=== PATIENT | female | born 1965 ===

== ENCOUNTER 2021-04-26 22:32 | Emergency (ER) | payer SELFPAY ==
[~2021-04-26] VITALS: Ht 154.9 cm; Wt 50.0 kg
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
[2021-04-26 23:09] LABS: ALBUMIN 2.5 g/dL (3.4-5.0); ANION GAP 10 mmol/L (5-15); BASOPHILS % (AUTO) 0 % (0-1); CALCIUM 7.8 mg/dL (8.5-10.1); CHLORIDE 104 mmol/L (98-107); CREATININE 0.78 mg/dL (0.55-1.02); EOSINOPHILS % (AUTO) 0 % (1-7); LYMPHOCYTES % (AUTO) 6 % (22-44); MEAN CORPUSCULAR HEMOGLOBIN 18.8 pg (27.0-34.8); MEAN CORPUSCULAR HGB CONC 31.5 g/dL (32.4-35.8); MONOCYTES % (AUTO) 2 % (2-9); NEUTROPHILS % (AUTO) 91 % (42-75); PLATELET COUNT 596 x10^3/uL (130-400); RED BLOOD COUNT 4.38 x10^6/uL (3.82-5.3)
--- NOTE | 2021-04-26 23:25 | NUR ---
PT OFF UNIT IN IMAGING.
--- NOTE | 2021-04-27 01:10 | NUR ---
BREAK RN: PT RESTING ON GURNEY, NAD, EYES CLOSED, EVEN AND UNLABORED RESPIRATIONS NOTED, UDS OBTAINED AND SENT TO LAB, [facility].
[2021-04-27 01:25] LABS: AMPHETAMINE SCREEN, URINE Positive (Negative); BARBITURATE SCREEN, URINE Negative (Negative); BENZODIAZEPINE SCREEN, URINE Negative (Negative); CANNABINOID SCREEN, URINE Negative (Negative); COCAINE SCREEN, URINE Positive (Negative); METHADONE SCREEN, URINE Negative (Negative); OPIATE SCREEN, URINE Negative (Negative)
[2021-04-27 01:38] VITALS: BP 108/64
--- NOTE | 2021-04-27 01:47 | NUR ---
PT AMBULATED TO BATHROOM WITH STEADY GAIT. AMBULATED BACK TO ROOM. PASSED ROAD TEST. PT MEDICALLY CLEARED. PT REFUSING TO DISCHARGE. PT GIVEN NON-SLIP SOCKS. SECURITY CALLED FOR ASSISTANCE. VSS BEFORE DC. BORA.
== END 2021-04-27 01:54 | disposition home or self-care (01) ==
LOC: ED 22:58
DX: F15.129 Other stimulant abuse with intoxication, unspecified (principal); R41.82 Altered mental status, unspecified; R00.0 Tachycardia, unspecified; R06.89 Other abnormalities of breathing
CPT/HCPCS: 36415; 70450; 71045; 80048; 80299; 80307; 80320; 82040; 82140; 85025; 93005; 99285; G0480